=== PATIENT | female | born 1990 | race Caucasian/White ===

== ENCOUNTER 2016-07-28 10:53 | Emergency (ER) | payer OTHER ==
[2016-07-28 11:03] VITALS: BP 146/81; PULSE 70; TEMP 98; BMI 25.0
--- NOTE | 2016-07-28 11:59 | PDOC ---
History of Present Illness - General Chief Complaint: Abscess Boil Stated Complaint: Abscess Boil Time Seen by Provider: 07/28/16 11:30 History Source: Patient Exam Limitations: No Limitations - History of Present Illness Initial Comments: 07/28/16 11:53 CC fatmata abcess to right public harea post shaving Timing/Duration: denies: just prior to arrival Severity: No: mild Location: reports: genitalia Past History - Past Medical History Allergies/Adverse Reactions: Allergies Allergy/AdvReac Type Severity Reaction Status Date / Time No Known Allergies Allergy Verified 07/28/16 10:59 Home Medications: Ambulatory Orders NK [No Known Home Medication] 07/28/16 - Psycho/Social/Smoking Cessation Hx Anxiety: No Suicidal Ideation: No Smoking History: Current every day smoker Have you smoked in the past 12 months: Yes Number of Cigarettes Smoked Daily: 10 Information on smoking cessation initiated: No 'Breaking Loose' booklet given: 03/22/16 Hx Alcohol Use: No Drug/Substance Use Hx: No Substance Use Type: None Review of Systems - Review of Systems Constitutional: No: Chills, Fever, Malaise HEENTM: No: Symptoms Reported Respiratory: Yes: Cough. No: Symptoms reported Cardiac (ROS): No: Symptoms Reported ABD/GI: No: Symptoms Reported Musculoskeletal: No: Symptoms Reported Integumentary: No: Other Neurological: No: Symptoms reported *Physical Exam - Vital Signs Last Vital Signs Temp Pulse Resp BP Pulse Ox 98 F 70 18 146/81 100 07/28/16 10:59 07/28/16 10:59 07/28/16 10:59 07/28/16 10:59 07/28/16 10:59 - Physical Exam General Appearance: Yes: Appropriately Dressed. No: Apparent Distress HEENT: positive: Pharynx Normal Respiratory/Chest: positive: Lungs Clear Cardiovascular: negative: Regular Rhythm, Regular Rate Integumentary: positive: Other (1cm x 1 cm hard mass; at superior border pubic hair) Procedures - Incision and Drainage I&D Site: Right: Groin Betadine cleansed: Yes Anesthesia: 1% Lidocaine Volume(ml): 3 Blade Size: 11 Attempts: 1 Plain Packing: No Dressing: Yes Medical Decision Making - Medical Decision Making 07/28/16 11:56 very small amt of pus return post I&D; no packing *DC/Admit/Observation/Transfer Diagnosis at time of Disposition: Cellulitis of groin, right - Discharge Dispostion Disposition: HOME Condition at time of disposition: Stable Admit: No - Referrals Referrals: Herberth Hook MD [Primary Care Provider] - - Patient Instructions Additional Instructions: wound check in 2 days; clean area with soap water - Post Discharge Activity Work/School Note: Back to Work
[2016-07-28] MEDS ORDERED: IBUPROFEN 600 MG TABLET (FP) PO ONE (12:03)
== END 2016-07-28 12:40 | disposition home or self-care (01) ==
LOC: JERFT 10:53
PROC: 0Y953ZZ Drainage of Right Inguinal Region, Percutaneous Approach (ICD-10-PCS; principal; 2016-07-28)
DX: L03.314 Cellulitis of groin (principal); F17.210 Nicotine dependence, cigarettes, uncomplicated
CPT/HCPCS: 87070; 87186; 87205; 99281-25

== ENCOUNTER 2016-07-31 19:23 | Emergency (ER) | payer OTHER ==
[2016-07-31 19:28] VITALS: BP 140/74; PULSE 84; TEMP 97.7; BMI 25.8
[2016-07-31] MEDS ORDERED: OXYCODONE/APAP 5/325MG COMBO TABLET PO ONE (20:17)
[2016-07-31] MEDS ORDERED: OXYCODONE/APAP 5/325MG COMBO TABLET ONE (20:19)
--- NOTE | 2016-07-31 20:24 | PDOC ---
History of Present Illness - General Chief Complaint: Wound Stated Complaint: FOLLOW UP Time Seen by Provider: 07/31/16 19:58 History Source: Patient Exam Limitations: No Limitations - History of Present Illness Initial Comments: 07/31/16 20:26 25-year-old female seen here 2 days prior for abscess to her right groin requiring antibiotics and had and incision and drainage with minimal drainage as per patient. Patient states has had no increase fever, chills, redness, or pain but states it also does not seem smaller than from her previous visit. Patient states has had this before secondary to shaving patient denies immunosuppression including diabetes. Timing/Duration: other Severity: mild Associated Symptoms: reports: denies symptoms Past History - Travel Traveled outside of the country in the last 30 days: No - Past Medical History Allergies/Adverse Reactions: Allergies Allergy/AdvReac Type Severity Reaction Status Date / Time No Known Allergies Allergy Verified 07/31/16 19:28 Home Medications: Ambulatory Orders Sulfamethoxazole/Trimethoprim [Bactrim Ds -] 1 tab PO BID #14 tablet 07/28/16 Oxycodone HCl/Acetaminophen [Percocet 5-325 mg Tablet] 1 - 2 tab PO Q6H PRN #8 tab MDD 4 07/31/16 - Reproductive History LMP Normal: Yes Is Patient Now?: No - Psycho/Social/Smoking Cessation Hx Anxiety: No Suicidal Ideation: No Smoking History: Current every day smoker Have you smoked in the past 12 months: Yes Number of Cigarettes Smoked Daily: 10 Information on smoking cessation initiated: No 'Breaking Loose' booklet given: 03/22/16 Hx Alcohol Use: No Drug/Substance Use Hx: Yes Substance Use Type: None Patient Lives Alone: No Lives with/in: spouse/SO Review of Systems - Review of Systems Constitutional: No: Symptoms Reported ABD/GI: No: Symptoms Reported Integumentary: Yes: Erythema, Lumps *Physical Exam - Vital Signs Last Vital Signs Temp Pulse Resp BP Pulse Ox 97.7 F 84 18 140/74 99 07/31/16 19:25 07/31/16 19:25 07/31/16 19:25 07/31/16 19:25 07/31/16 19:25 - Physical Exam General Appearance: Yes: Nourished, Appropriately Dressed. No: Apparent Distress Female Pelvic Exam: positive: normal external exam Gastrointestinal/Abdominal: positive: Soft, Tenderness (rt suprapubic) Integumentary: positive: Other (noted 2 cm horizontal linear raised papule to right suprapubic with palpable fluctuance in the center. Surrounding skin intact) Procedures - Incision and Drainage I&D Site: Right: Abdomen Betadine cleansed: Yes Anesthesia: 1% Lidocaine Volume(ml): 1 Blade Size: 11 Attempts: 1 Plain Packing: Yes Complications: none Dressing: Yes Medical Decision Making - Medical Decision Making 07/31/16 20:34 Patient here for wound check of the right suprapubic. Patient currently on Bactrim. Patient on exam had noted fluctuance to Center of right suprapubic papule. Patient had incision and drainage performed using 11 blade without difficulty. Packing placed and told patient to remove in 2 days or return here symptoms worsen *DC/Admit/Observation/Transfer Diagnosis at time of Disposition: Encounter for incision and drainage procedure - Discharge Dispostion Disposition: HOME Condition at time of disposition: Good - Referrals Referrals: Herberth Hook MD [Primary Care Provider] - - Patient Instructions Printed Discharge Instructions: DI for Incision and Drainage of a Skin Abscess Additional Instructions: I have apply packing into the wound which you may remove yourself in 2 days. If you notice any increased redness swelling or fever please return to the ED .Otherwise continue your antibiotics until completed
== END 2016-07-31 20:29 | disposition home or self-care (01) ==
LOC: JERFT 19:23 → SUPCPDRO 19:23 → JERFT 20:29
PROC: 0Y953ZZ Drainage of Right Inguinal Region, Percutaneous Approach (ICD-10-PCS; principal; 2016-07-31)
DX: L02.214 Cutaneous abscess of groin (principal)
CPT/HCPCS: 10060; 99281-25

== ENCOUNTER 2016-11-12 09:10 | Emergency (ER) | payer OTHER ==
[2016-11-12 09:19] VITALS: BP 148/75; PULSE 77; TEMP 97.7; BMI 26.6
[2016-11-12] MEDS ORDERED: SULFAMETHOXAZOLE/TRIMETHOPRIM 800MG/160MG D.S. TABLET PO ONE ×2 (10:03→10:08)
[2016-11-12] MEDS ORDERED: CEPHALEXIN MONOHYDRATE 500 MG CAPSULE (UD) PO ONE (10:03)
[2016-11-12] MEDS ORDERED: CEPHALEXIN MONOHYDRATE 500 MG CAPSULE (UD) ONE (10:08)
[2016-11-12] MEDS ORDERED: SULFAMETHOXAZOLE/TRIMETHOPRIM 800MG/160MG D.S. TABLET ONE ×2 (10:08→10:09)
--- NOTE | 2016-11-12 10:11 | PDOC ---
History of Present Illness - General Chief Complaint: Redness To Affected Area Stated Complaint: ALLERGIC REACTION Time Seen by Provider: 11/12/16 09:48 History Source: Patient Exam Limitations: No Limitations - History of Present Illness Initial Comments: 11/12/16 19:28 Chief complaint: Worsening redness around [place] tattoo in left wrist 2 days History of present illness: Patient is a 26-year-old female with no significant medical history here today complaining of worsening redness around [place] tattoo that she got on 11/10/2016 on the [facility] in [place]. Patient reports that area started to irritate her immediately after patient read online that she could olive oil and salt together and rub worse on the tattoo and it would remove it. Patient reports that yesterday she noticed that she had tiny little bumps on the tattooed area itself and increased redness around the tattoo on her left medial wrist. Patient is up-to-date with tetanus. Patient reports that she did get hepatitis B vaccine. She denies having fever or chills. Timing/Duration: getting worse Severity: moderate Associated Symptoms: reports: denies symptoms, other (itchiness of tatto and surrounding area) Past History - Past Medical History Allergies/Adverse Reactions: Allergies Allergy/AdvReac Type Severity Reaction Status Date / Time No Known Allergies Allergy Verified 11/12/16 09:14 Home Medications: Ambulatory Orders Oxycodone HCl/Acetaminophen [Percocet 5-325 mg Tablet] 1 - 2 tab PO Q6H PRN #8 tab MDD 4 07/31/16 Betamethasone/Propylene Glyc [Betamethasone Dp Aug 0.05% Oin] 15 gm TP BID #1 oint...g. MDD 2 11/12/16 Cephalexin Monohydrate [Keflex -] 500 mg PO Q8H #29 capsule 11/12/16 Sulfamethoxazole/Trimethoprim [Bactrim DS -] 1 tab PO BID #19 tablet 11/12/16 Other medical history: DENIES - Psycho/Social/Smoking Cessation Hx Anxiety: No Suicidal Ideation: No Smoking History: Never smoked Have you smoked in the past 12 months: Yes Number of Cigarettes Smoked Daily: 10 'Breaking Loose' booklet given: 03/22/16 Hx Alcohol Use: No Drug/Substance Use Hx: No Substance Use Type: None Review of Systems - Review of Systems Able to Perform ROS?: Yes Constitutional: No: Symptoms Reported HEENTM: No: Symptoms Reported Respiratory: No: Symptoms reported Cardiac (ROS): No: Symptoms Reported ABD/GI: No: Symptoms Reported : No: Symptoms Reported Musculoskeletal: No: Symptoms Reported Integumentary: Yes: Erythema (surrounding [place] tatto and tiny pustules on tatto left medial wrist ), Pruritus Neurological: No: Symptoms reported *Physical Exam - Vital Signs Last Vital Signs Temp Pulse Resp BP Pulse Ox 97.7 F 77 20 148/75 99 11/12/16 09:11 11/12/16 09:11 11/12/16 09:11 11/12/16 09:11 11/12/16 09:11 - Physical Exam General Appearance: Yes: Appropriately Dressed Respiratory/Chest: positive: Lungs Clear, Normal Breath Sounds. negative: Chest Tender, Respiratory Distress Cardiovascular: positive: Regular Rhythm, Regular Rate, S1, S2 Integumentary: positive: Erythema (left medial wrist approx 4 cm diameter surrounding carolina rash with tiny pustules on tatto lines). negative: Swelling Neurologic: positive: Alert, Respond to painful stimul, Responsive Medical Decision Making - Medical Decision Making 11/12/16 19:31 Patient is a 26-year-old female with no significant medical history here today complaining of worsening redness around [place] tattoo that she got on 11/10/2016 on the [facility] in [place]. Patient reports that area started to irritate her immediately after patient read online that she could olive oil and salt together and rub worse on the tattoo and it would remove it. Patient reports that yesterday she noticed that she had tiny little bumps on the tattooed area itself and increased redness around the tattoo on her left medial wrist. Patient is up-to-date with tetanus. Patient reports that she did get hepatitis B vaccine. She denies having fever or chills. She denies any chance of being . local reaction left medial wrist with cellulitis PLAN: betamethaone Dipropionate 0.5% oint bid bactrim DS one tab bid for 10 days keflex 500 mg q8 hrs for 10 days 11/12/16 19:32 *DC/Admit/Observation/Transfer Diagnosis at time of Disposition: Tattoo reaction, Cellulitis of wrist - Prescriptions Prescriptions: Sulfamethoxazole/Trimethoprim [Bactrim DS -] 1 tab PO BID #19 tablet Betamethasone/Propylene Glyc [Betamethasone Dp Aug 0.05% Oin] 15 gm TP BID #1 oint...g. MDD 2 Cephalexin Monohydrate [Keflex -] 500 mg PO Q8H #29 capsule - Referrals Referrals: Herberth Hook MD [Primary Care Provider] - - Patient Instructions Additional Instructions: Return to emergency room if symptoms worsen increased redness around tattoo or fever or chills Follow-up with your primary care provider within the next few days Take Benadryl as needed as directed by manager heart failure for itchiness Patient voiced understanding of discharge instructions and all questions were answered - Post Discharge Activity Work/School Note: Back to Work
== END 2016-11-12 10:17 | disposition home or self-care (01) ==
LOC: JERFT 09:10 → JER 09:10 → JERFT 10:17
DX: T65.891A Toxic effect of other specified substances, accidental (unintentional), initial encounter (principal); L23.5 Allergic contact dermatitis due to other chemical products; Y92.838 Other recreation area as the place of occurrence of the external cause; L03.114 Cellulitis of left upper limb
CPT/HCPCS: 99281-25